=== PATIENT | female | born 1990 | race Caucasian/White ===

== ENCOUNTER 2017-02-18 22:39 | Emergency (ER) | payer OTHER ==
--- NOTE | ~2017-02-18 | CR63 ---
[facility]. [facility] A Service of [facility] & [facility] RADIOLOGY TEXT RESULTS PATIENT: JENN AUGUSTIN LOCATION: SED : 88 UNIT #: [id number] AGE: [address]: BENJAMÍN HAIDER SEX: F ORDER DR: [id number] [place] [id number] E MR#: [id number] Acc #: [id number] NAME: JENN AUGUSTIN : 1990 SEX: F STUDY DATE/TIME: 02/18/2017 23:27 UNIT: SED ROOM: STUDY DESCRIPTION: CR Chest 2 View Attending Physician: Benjamín Haider Ordering Physician: Physician Non-Staff Primary Care Physician: Demond Armstrong Aprn MEDICAL IMAGING REPORT This report is preliminary unless electronic signature is present. EXAM 2-view chest INDICATIONS Chest pain. Left-sided chest pain. FINDINGS PA and lateral views of the chest without comparison. Heart and mediastinal contours normal. Lungs are clear. No pleural effusion. IMPRESSION No acute cardiopulmonary findings. Dictated by... Abe Méndez M.D. THIS IS AN ELECTRONICALLY VERIFIED REPORT Abe Méndez M.D. at 02/19/2017 12:49 AM [place] TD: 02/19/2017 00:03 JOB #: [id number] MEDICAL IMAGING REPORT Page 1 of 1
--- NOTE | ~2017-02-18 | EKG ---
PATIENT: JENN AUGUSTIN UNIT #: [id number] Ventricular Rate: 98 BPM Atrial Rate: 98 BPM P-R Interval: 242 ms QRS Duration: 78 ms Q-T Interval: 336 ms QTC Calculation(Bezet): 428 ms P [place]: 63 degrees Calculated R [place]: 74 degrees Calculated T [place]: 42 degrees Diagnosis Line: Sinus rhythm with 1st degree A-V block Diagnosis Line: Otherwise normal ECG Diagnosis Line: Diagnosis Line: Confirmed by RONDA MARCUS MD ([id number]) on Diagnosis Line: 02/22/2017 9:35:03 PM INTERPRETING MD: ANGELINE LOVETT
[2017-02-18] MEDS ORDERED: NO MEDICATIONS (22:46)
== END 2017-02-19 00:15 | disposition home or self-care (01) ==
LOC: SED 22:39
DX: R07.89 Other chest pain (principal); R03.0 Elevated blood-pressure reading, without diagnosis of hypertension; F17.210 Nicotine dependence, cigarettes, uncomplicated
CPT/HCPCS: 71020; 93005; 99284